=== PATIENT | female | born 1950 | race Two or more races ===

== ENCOUNTER 2017-06-22 22:58 | Emergency (ER) | payer OTHER ==
[~2017-06-22] VITALS: Ht 154.9 cm; Wt 64.9 kg
[2017-06-22] MEDS ORDERED: ZESTRIL10 M1 (23:16)
[2017-06-23] MEDS ORDERED: KETO10TA2 PO (01:26)
== END 2017-06-23 01:30 | disposition home or self-care (01) ==
LOC: ER 22:58
DX: S82.092A Other fracture of left patella, initial encounter for closed fracture (principal); S60.811A Abrasion of right wrist, initial encounter; W22.8XXA Striking against or struck by other objects, initial encounter; Y93.01 Activity, walking, marching and hiking; Y92.480 Sidewalk as the place of occurrence of the external cause; Y99.8 Other external cause status